=== PATIENT | female | born 1980 | race Caucasian/White ===

== ENCOUNTER 2017-09-09 09:01 | Emergency (ER) | payer MEDICAID ==
[2017-09-09 09:39] LABS: BASOPHIL % 0.3 % (0-2); PLATELET COUNT 199 x10^3mcL (130-400); RED CELL DISTRIBUTION WIDTH 12.9 % (11.5-14.5)
[2017-09-09 09:50] LABS: CARBON DIOXIDE 28.6 mmol/L (21-32); CHLORIDE SERUM 106 mmol/L (98-107); CREATININE SERUM 0.7 mg/dL (0.6-1.0); GFR1 > 60 mL/min; GLUCOSE SERUM 66 mg/dL (74-106); POTASSIUM SERUM 3.9 mmol/L (3.5-5.1); SODIUM SERUM 141 mmol/L (136-145)
[2017-09-09 09:52] LABS: microscopic required? YES; urine erythrocyte 3+ (NEGATIVE)
[2017-09-09 09:54] LABS: ALBUMIN 3.6 g/dL (3.4-5.0); ALKALINE PHOSPHATASE 89 U/L (46-116); ALT/SGPT 89 U/L (14-59); AST/SGOT 42 U/L (15-37); BILIRUBIN TOTAL 0.49 mg/dL (0.20-1.00); CHOLESTEROL 176 mg/dL (<200); CHOLESTEROL/HDL RATIO 2.5; HDL CHOLESTEROL 70 mg/dL (40-60); LIPASE 122 IU/L (73-393); TOTAL PROTEIN, SERUM 7.7 g/dL (6.4-8.2); TRIGLYCERIDES 22 mg/dL (<150)
[2017-09-09 10:02] LABS: T3 TOTAL 1.29 ng/mL
[2017-09-09 10:06] LABS: FREE THYROXINE INDEX 2.6 ug/dL (1.4-4.5); T4(THYROXINE) 7.7 ug/dL (4.7-13.3)
[2017-09-09 12:46] VITALS: BP 105/54
== END 2017-09-09 12:46 | disposition home or self-care (01) ==
LOC: ED 09:01
PROVIDERS: Specialist
DX: M54.6 Pain in thoracic spine (principal)
CPT/HCPCS: 36415; 83880; 84439; Q0092

== ENCOUNTER 2018-02-08 15:52 | Emergency (ER) | payer MEDICAID ==
[~2018-02-08] VITALS: Ht 157.5 cm; Wt 69.8 kg
[2018-02-08 15:57] VITALS: Ht 157.5 cm; Wt 69.8 kg
[2018-02-08 17:48] VITALS: BP 119/75
== END 2018-02-08 17:48 | disposition home or self-care (01) ==
LOC: ED 15:52
DX: M54.6 Pain in thoracic spine (principal); R07.89 Other chest pain

== ENCOUNTER 2018-03-17 15:45 | Emergency (ER) | payer MEDICAID ==
[~2018-03-17] VITALS: Ht 157.5 cm; Wt 70.5 kg
[2018-03-17 16:20] VITALS: Ht 157.5 cm; Wt 70.5 kg
[2018-03-17 17:56] VITALS: BP 130/84
== END 2018-03-17 17:56 | disposition home or self-care (01) ==
LOC: ED 15:45
DX: M54.12 Radiculopathy, cervical region (principal)